=== PATIENT | female | born 1965 | race Caucasian/White ===

== ENCOUNTER 2020-02-16 18:49 | Emergency (ER) | payer OTHER, SELFPAY ==
[2020-02-16 18:50] VITALS: BP 152/73; PULSE 70; RESP 16; TEMP 36.1; O2SAT 97; BMI 30.4
--- NOTE | 2020-02-16 18:55 | ED.DCSUM_ITS ---
History of Present Illness Chief Complaint: Fall Informant: Patient Narrative: 54-year-old female presenting with left arm pain. She states that a week ago she fell while riding. She fell on her knees and her bilateral hands. Initially her knees hurt a little bit and her right hand hurts some however her left hand is hurt more. She states that initially she was barely able to move it secondary to pain that would radiate from the wrist up into her elbow area through the forearm. It is now improved. She has been taking Tylenol and ibuprofen. She is able to flex and extend her shoulder more easily. She is able to flex and extend her elbow. She states when she pronates or supinates her left forearm or bends her wrist she has sharp pain that radiates from the wrist into her elbow. She does not have any numbness. There is no bruising. Past Medical History - Allergies and Home Meds Allergies/Adverse Reactions: Allergies Penicillins [PCN] Allergy (Verified 02/16/20 18:50) PT UNSURE OF REACTION Primary Care Physician: Anastacio Guerrero Jr., MD [Primary Care Provider] - Prior records reviewed: Yes Lives: Spouse/ Significant Other Smoking Status: Unknown if ever smoked Alcohol: None Drugs: None Review of Systems General: Denies: Chills, Fever, Sweats Eyes: Denies: Visual changes - bilaterally, Diplopia ENT: Denies: Rhinorrhea, Sore throat Cardiovascular: Denies: Chest pain, Palpitations Respiratory: Denies: Dyspnea, Cough, Dyspnea on exertion Gastrointestinal: Denies: Abdominal pain, Nausea, Vomiting, Diarrhea, Melena, Hematochezia Genitourinary: Denies: Dysuria, Hematuria, Frequency Musculoskeletal: Reports: - - Left upper extremity pain, left wrist pain Skin: Reports: Abrasions. Denies: Rash Neurological: Denies: Headache Physical Exam Vital Signs/Narrative: Vital Signs Temp Pulse Resp BP Pulse Ox 02/16/20 18:50 97 F L 70 16 152/73 H 97 General: Well nourished, No Acute Distress Head: Normocephalic Eyes: Perrl Cardiovascular: Regular rate, Regular rhythm Respiratory: No distress Extremities: - - Left shoulder has full range of motion actively and passively. There is no tenderness over the left shoulder girdle. There is no tenderness over the left humerus. The left elbow has no tenderness at the olecranon. The radial head does not appear to be tender. When flexing and extending the wrist or pronating and supinating the forearm pain is elicited which radiates from the wrist to the elbow. No lacerations or abrasions. Diagnostic/Tx/Re-eval Clinical Impression(s) from Imaging Studies Forearm X-Ray 02/16/20 19:01 IMPRESSION: No acute osseous injury is evident. Electronically Signed: Bipin Davila MD at 19:38 EDT Tel , Service support , Wrist X-Ray 02/16/20 19:01 IMPRESSION: No acute osseous injury is evident. Electronically Signed: Bipin Davila MD at 19:37 EDT Tel , Service support , Elbow X-Ray 02/16/20 19:02 IMPRESSION: No acute osseous injury is evident. Electronically Signed: Bipin Davila MD at 19:38 EDT Tel , Service support , - Medical Decision Making She presents with improving arm pain after falling earlier this week. She states that she has been nagging her. She states that her arm pain radiates from her wrist to her elbow when she tries to pronate or supinate. Is also hurts when she moves her wrist. Declined analgesia. She does wanted images to make sure nothing was broken. These images are normal. I will give her follow- up with her PCP. Impression: 1. Wrist sprain 2. Forearm sprain ED Disposition - Plan for ED Patient: Disposition: Home or Assisted Living Instructions: Hand and Wrist Exercises: Wrist Flexion, ED Mechanical Fall Referrals: Anastacio Guerrero Jr., MD [Primary Care Provider] -
--- NOTE | 2020-02-16 19:01 | RAD_ITS ---
STUDY: X-RAY - LEFT RADIUS AND ULNA REASON FOR EXAM: Female, 54 years old. FALL 7 DAYS AGO, CONTINUED LEFT ARM PAIN TECHNIQUE: 2 view(s) of the forearm. COMPARISON: None. FINDINGS: There is no demonstrated soft tissue swelling. Normal visualized radius. Normal visualized ulna. RAD/Forearm 2 Views IMPRESSION: No acute osseous injury is evident. Electronically Signed: Bipin Davila MD at 19:38 EDT Tel , Service support ,
--- NOTE | 2020-02-16 19:01 | RAD_ITS ---
STUDY: X-RAY - LEFT WRIST REASON FOR EXAM: Female, 54 years old. FALL 7 DAYS AGO, CONTINUED LEFT ARM PAIN TECHNIQUE: 3 view(s) of the wrist were obtained. COMPARISON: None. FINDINGS: Normal visualized distal radius and ulna. Normal radiocarpal articulation. Normal distal radioulnar articulation. Normal carpal bones. Normal carpal articulations. Normal carpometacarpal articulation of the thumb. Normal second through fifth carpometacarpal articulations. Normal visualized metacarpal bones. The soft tissue structures are unremarkable. RAD/Wrist min 3 Views IMPRESSION: No acute osseous injury is evident. Electronically Signed: Bipin Davila MD at 19:37 EDT Tel , Service support ,
--- NOTE | 2020-02-16 19:02 | RAD_ITS ---
STUDY: X-RAY - LEFT ELBOW REASON FOR EXAM: Female, 54 years old. FALL 7 DAYS AGO, CONTINUED LEFT ARM PAIN TECHNIQUE: 3 view(s) of the elbow. COMPARISON: None. FINDINGS: Normal visualized humerus, radius and ulna. Normal radiocapitellar and ulnotrochlear articulations. The soft tissue structures are unremarkable. RAD/Elbow min 3 Views IMPRESSION: No acute osseous injury is evident. Electronically Signed: Bipin Davila MD at 19:38 EDT Tel , Service support ,
== END 2020-02-16 20:52 | disposition home or self-care (01) ==
PROVIDERS: Emergency Provider Student in an Organized Health Care Education/Training Program
DX: S63.502A Unspecified sprain of left wrist, initial encounter (principal); S53.402A Unspecified sprain of left elbow, initial encounter; W19.XXXA Unspecified fall, initial encounter; Y93.9 Activity, unspecified; Y92.9 Unspecified place or not applicable
CPT/HCPCS: 73080; 73090; 73110; 99282

== ENCOUNTER 2022-07-24 16:12 | Emergency (ER) | payer OTHER, SELFPAY ==
[2022-07-24 16:13] VITALS: BP 145/99; PULSE 83; RESP 18; TEMP 36.4; O2SAT 99; BMI 31.6
--- NOTE | 2022-07-24 16:37 | RAD_ITS ---
INDICATION: Trauma, fall, pain EXAMINATION/TECHNIQUE: X-RAY - LEFT XR Wrist Min 3 Views 3 VIEWS COMPARISON: 02/16/2020 FINDINGS: SOFT TISSUES: No soft tissue swelling or gas. No radiopaque foreign body. BONES/JOINTS: Nondisplaced, comminuted and intra-articular fracture of the distal radius, overall alignment near anatomic. Avulsion fracture of the ulnar styloid. Joint spaces anatomically maintained. RAD/Wrist min 3 Views IMPRESSION: Comminuted intra-articular fracture of the distal radius with avulsion fracture of the ulnar styloid. Electronically Signed: Stefano Molina MD at 17:19 EST ,
--- NOTE | 2022-07-24 17:22 | EX.ED.UPPERE ---
HPI History of Present Illness Chief Complaint: Upper Extremity Injury Informant: patient Narrative Narrative: Patient was going down slide with grandson and somehow slipped and landed on her left wrist. She has pain at the left wrist. Nothing else hurts. She never hit her head. She is not on any blood thinners. Motion or pressing makes it worse and rest makes it better. PFSH PFSH Home Medications hydrocodone-acetaminophen 5-325mg 5mg-325mg 1 tab PO Q6H PRN pain 3 days #10 tabs 07/24/22 [Rx Last Taken Unknown] Allergy/AdvReac Type Severity Reaction Status Date / Time Penicillins [PCN] Allergy PT UNSURE Verified 07/24/22 16:12 OF REACTION Social History Smoking Status: Never smoker ROS ROS ED Cardiovascular Cardiovascular: Denies chest pain or palpitations Respiratory/Chest Respiratory/Chest: Denies dyspnea Gastrointestinal Gastrointestinal: Denies nausea or vomiting Musculoskeletal Musculoskeletal: Reports other Details: Wrist pain as in history of present illness. Integumentary Denies Abrasions or rash Hematologic/Lymphatic Hematologic/Lymphatic: Denies easy bleeding or easy bruising EXAM Physical Exam Narrative Exam Narrative: Patient awake alert sitting quietly in bed. No acute distress. No sign of head trauma. Mucous membranes are moist no pain with neck motion. Lungs are clear. There is no tenderness around the shoulder or elbow or forearm. She does have some tenderness and mild swelling dorsally over the radius distally on the left wrist. No tenderness to the hand. I do not see deformity. There is no alteration of sensation. Capillary refill is normal. Const Vital Signs: 07/24/22 16:13 Temperature 97.6 F L Temperature Source Temporal Pulse Rate 83 Respiratory Rate 18 Blood Pressure 145/99 H Blood Pressure Mean 114 Pulse Ox 99 Oxygen Delivery Method Room Air MDM MDM MDM Narrative Medical decision making narrative: My independent interpretation of the patient's left wrist x-rays with 3 views show intra-articular fracture with comminution. But there is no significant angulation. Overall position is relatively good. There is a small ulnar styloid fracture. Final reading by radiology shows comminuted intra-articular fracture of the distal radius with avulsion fracture of the ulnar styloid. Procedure: AP splint placement: I placed the patient in AP fiberglass splints that were made in the room. She was held in position until the solidified. We discussed care. We discussed loosening if needed. Patient will need to follow-up with orthopedics. She will need further imagery. She can use ice rest elevation for pain. I will write for narcotic pain med. I did review her online [facility] prescribing data. This showed a single prescription for Tylenol with codeine over 1 year ago. I think it is appropriate that she has narcotics for an acute fracture. Repeat exam after she was splinted and the splint was firm shows good capillary refill sensation and range of motion the fingers. Radiography Diagnostic Testing: Clinical Impression(s) from Imaging Studies Wrist X-Ray 07/24/22 16:37 IMPRESSION: Comminuted intra-articular fracture of the distal radius with avulsion fracture of the ulnar styloid. Electronically Signed: Stefano Molina MD at 17:19 EST Reading Location ID and State: [facility] / [place] Tel , Service support , Procedures Upper Extremity Splints Upper Extremity Splint: Orthoglass and - (Anterior posterior wrist splint) Splint Fabrication: Fabricated Location: Left Discharge Plan Triage Chief Complaint: Upper Extremity Injury ED Provider: Melo Cat Dx/Rx/DC Orders Clinical Impression: Closed fracture of left wrist, Fall Instructions: ED Fracture, Wrist, General Prescriptions: New hydrocodone-acetaminophen 5-325 mg tablet 1 tab PO Q6H PRN (Reason: pain) 3 Days Qty: 10 0RF Primary Care Provider: Anjel Guerrero Referrals: Haseeb Herron DO [Med Staff - Active Staff] - 2 Days Anjel Guerrero MD [Primary Care Provider] - Disposition Disposition: Home, Self Care
[2022-07-24 19:09] VITALS: RESP 14
== END 2022-07-24 19:17 | disposition home or self-care (01) ==
PROVIDERS: Emergency Provider Emergency Medicine; PCP Surgery; Visit Provider Emergency Medicine
DX: S52.572A Other intraarticular fracture of lower end of left radius, initial encounter for closed fracture (principal); S52.612A Displaced fracture of left ulna styloid process, initial encounter for closed fracture; W09.0XXA Fall on or from playground slide, initial encounter
CPT/HCPCS: 29125; 73110; 99282